=== PATIENT | female | born 1945 | race Caucasian/White ===

== ENCOUNTER 2018-09-19 13:54 | Emergency (ER) | payer MEDICARE, BC ==
[~2018-09-19] VITALS: Ht 167.6 cm; Wt 90.0 kg
[~2018-09-19 13:54] MED LIST: ASPI-1265 PO; CARV-49 PO; CHOL200035 PO; LEVO25TA2 PO; VALS1TAB75 PO
[2018-09-19 14:03] VITALS: BP 170/70
[2018-09-19] MEDS ORDERED: HYDR-3965 PO (14:28)
[2018-09-19] MEDS ORDERED: HYDROcodone/acetaminophen 5mg/325mg tablet PO ONE (14:30)
== END 2018-09-19 15:01 | disposition home or self-care (01) ==
LOC: ER 13:55
DX: S52.571A Other intraarticular fracture of lower end of right radius, initial encounter for closed fracture (principal); I10 Essential (primary) hypertension; Z79.82 Long term (current) use of aspirin; Z88.8 Allergy status to other drugs, medicaments and biological substances; W01.0XXA Fall on same level from slipping, tripping and stumbling without subsequent striking against object, initial encounter; Y93.89 Activity, other specified; Y92.096 Garden or yard of other non-institutional residence as the place of occurrence of the external cause; Y99.8 Other external cause status
CPT/HCPCS: 29125; 73110; 99283